=== PATIENT | female | born 1975 | race Caucasian/White ===

== ENCOUNTER 2016-06-21 10:44 | Emergency (ER) | payer OTHER ==
[2016-06-21 12:53] LABS: HEMOGLOBIN 13.5 gm/dl (12.3-15.3); RED BLOOD COUNT 4.61 M/UL (4.00-5.10); WHITE BLOOD COUNT 8.5 K/UL (4.5-11.0)
[2016-06-21 13:18] LABS: BUN/CREATININE RATIO 18 (0-10)
[2016-07-11] MEDS ORDERED: LEXAPRO20 MG PO (11:23)
[2016-07-11] MEDS ORDERED: FLEXERIL 10 MG10 MG PO (11:24)
[2016-07-11] MEDS ORDERED: PROTONIX20 MG PO (11:24)
[2016-07-11] MEDS ORDERED: PROVENTIL HFA 61 INH INH ×2 (11:24→11:25)
[2016-07-11] MEDS ORDERED: PRINIVIL5 MG PO (11:25)
[2016-07-11] MEDS ORDERED: NEURONTIN 400400 MG PO (11:26)
[2016-07-11] MEDS ORDERED: IMITREX25 MG PO (11:28)
[2016-07-11] MEDS ORDERED: COLACE 100MG C100 MG PO (14:01)
[2016-07-11] MEDS ORDERED: NORCO 7.5-3251 EACH PO (14:02)
== END 2016-06-21 14:10 | disposition home or self-care (01) ==
LOC: ER1 10:44
PROVIDERS: Physician Assistant Medical
DX: B34.9 Viral infection, unspecified (principal); I10 Essential (primary) hypertension; J45.909 Unspecified asthma, uncomplicated; F17.210 Nicotine dependence, cigarettes, uncomplicated; Z88.0 Allergy status to penicillin
CPT/HCPCS: 71020; 80053; 81001; 83690; 85025; 94640; 94664; 99283

== ENCOUNTER 2016-06-29 14:29 | Emergency (ER) | payer OTHER ==
[2016-06-29 16:22] LABS: HEMOGLOBIN 16.2 gm/dl (12.3-15.3); RED BLOOD COUNT 5.5 M/UL (4.00-5.10); WHITE BLOOD COUNT 9.6 K/UL (4.5-11.0)
[2016-06-29 16:39] LABS: BUN/CREATININE RATIO 27 (0-10)
[2016-07-11] MEDS ORDERED: LEXAPRO20 MG PO (11:23)
[2016-07-11] MEDS ORDERED: FLEXERIL 10 MG10 MG PO (11:24)
[2016-07-11] MEDS ORDERED: PROVENTIL HFA 61 INH INH ×2 (11:24→11:25)
[2016-07-11] MEDS ORDERED: PROTONIX20 MG PO (11:24)
[2016-07-11] MEDS ORDERED: PRINIVIL5 MG PO (11:25)
[2016-07-11] MEDS ORDERED: NEURONTIN 400400 MG PO (11:26)
[2016-07-11] MEDS ORDERED: IMITREX25 MG PO (11:28)
[2016-07-11] MEDS ORDERED: COLACE 100MG C100 MG PO (14:01)
[2016-07-11] MEDS ORDERED: NORCO 7.5-3251 EACH PO (14:02)
== END 2016-06-29 18:00 | disposition home or self-care (01) ==
LOC: ER1 14:29
PROVIDERS: Physician Assistant Medical
DX: K80.70 Calculus of gallbladder and bile duct without cholecystitis without obstruction (principal); B18.1 Chronic viral hepatitis B without delta-agent; I10 Essential (primary) hypertension; J45.909 Unspecified asthma, uncomplicated; F17.210 Nicotine dependence, cigarettes, uncomplicated; Z88.0 Allergy status to penicillin
CPT/HCPCS: 36415; 76705; 80053; 81001; 82150; 83690; 85025; 96374; 99284; J2550; J7030

== ENCOUNTER 2016-07-04 14:15 | Emergency (ER) | payer OTHER ==
[2016-07-11] MEDS ORDERED: LEXAPRO20 MG PO (11:23)
[2016-07-11] MEDS ORDERED: FLEXERIL 10 MG10 MG PO (11:24)
[2016-07-11] MEDS ORDERED: PROTONIX20 MG PO (11:24)
[2016-07-11] MEDS ORDERED: PROVENTIL HFA 61 INH INH ×2 (11:24→11:25)
[2016-07-11] MEDS ORDERED: PRINIVIL5 MG PO (11:25)
[2016-07-11] MEDS ORDERED: NEURONTIN 400400 MG PO (11:26)
[2016-07-11] MEDS ORDERED: IMITREX25 MG PO (11:28)
[2016-07-11] MEDS ORDERED: COLACE 100MG C100 MG PO (14:01)
[2016-07-11] MEDS ORDERED: NORCO 7.5-3251 EACH PO (14:02)
== END 2016-07-04 19:12 | disposition left against medical advice (07) ==
LOC: ER1 14:15
DX: Z53.21 Procedure and treatment not carried out due to patient leaving prior to being seen by health care provider (principal)

== ENCOUNTER → 2016-07-11 | Day surgery (SDC) | payer OTHER ==
[~2016-07-11] VITALS: Ht 167.6 cm; Wt 56.7 kg
[~2016-07-11] MED LIST: COLACE 100MG C100 MG PO; FLEXERIL 10 MG10 MG PO; IMITREX25 MG PO; LEXAPRO20 MG PO; NEURONTIN 400400 MG PO; NORCO 7.5-3251 EACH PO; PRINIVIL5 MG PO; PROTONIX20 MG PO; PROVENTIL HFA 61 INH INH
[2016-07-11 11:10] LABS: HEMOGLOBIN 14.7 gm/dl (12.3-15.3); RED BLOOD COUNT 5.01 M/UL (4.00-5.10); WHITE BLOOD COUNT 6.5 K/UL (4.5-11.0)
== END | disposition home or self-care (01) ==
LOC: OR 10:16
PROVIDERS: Surgery
PROC: BF13YZZ Fluoroscopy of Gallbladder and Bile Ducts using Other Contrast (ICD-10-PCS; 2016-07-11)
PROC: 0FT44ZZ Resection of Gallbladder, Percutaneous Endoscopic Approach (ICD-10-PCS; principal; 2016-07-11 13:15)
DX: K80.10 Calculus of gallbladder with chronic cholecystitis without obstruction (principal); F17.210 Nicotine dependence, cigarettes, uncomplicated; R03.0 Elevated blood-pressure reading, without diagnosis of hypertension; K21.9 Gastro-esophageal reflux disease without esophagitis; E83.52 Hypercalcemia; E78.5 Hyperlipidemia, unspecified; E66.9 Obesity, unspecified; M19.90 Unspecified osteoarthritis, unspecified site; G89.29 Other chronic pain; G43.909 Migraine, unspecified, not intractable, without status migrainosus; Z88.0 Allergy status to penicillin; Z79.51 Long term (current) use of inhaled steroids; Z79.899 Other long term (current) drug therapy; Z98.51 Tubal ligation status; J45.909 Unspecified asthma, uncomplicated; Z86.19 Personal history of other infectious and parasitic diseases
CPT/HCPCS: 36415; 47531; 85027; 86850; 86900; 86901; J1100; J2250; J2405; J2710; J3010; J7030; J7120; Q9962

== ENCOUNTER → 2016-10-10 | Outpatient (CLI) | payer OTHER | LOC: RAD 13:30 | DX: M54.2 Cervicalgia (principal); M54.5 Low back pain | CPT/HCPCS: 72050; 72072; 72110 ==

== ENCOUNTER 2020-07-29 15:25 | Emergency (ER) | payer OTHER ==
[~2020-07-29 15:25] MED LIST changes: +ELIMITE 5% CREA60 GM TOP; +IBUPROFEN800 MG PO; +LEVAQUIN500 MG PO; +OMNICEF 300 MG300 MG PO; +PREDNISONE 50 M50 MG PO; +VENTOLIN HFA 66.7 GM INH
[2020-07-29 17:24] LABS: HEMOGLOBIN 8.2 gm/dl (12.3-15.3); RED BLOOD COUNT 3.92 M/UL (4.00-5.10); WHITE BLOOD COUNT 13.9 K/UL (4.5-11.0)
[2020-07-29 17:46] LABS: BUN/CREATININE RATIO 24 (0-10)
[2020-07-30 10:23] LABS: HEMOGLOBIN 7.4 gm/dl (12.3-15.3); RED BLOOD COUNT 3.61 M/UL (4.00-5.10); WHITE BLOOD COUNT 13.6 K/UL (4.5-11.0)
[2020-07-31 11:11] LABS: HBSAG SCREEN Negative (Negative); HEP A AB, IGM Negative (Negative); HEP B CORE AB, IGM Indeterminate (Negative); HEP C VIRUS AB >11.0 (0.0-0.9)
[2020-07-31 13:11] LABS: ANTI-DSDNA ANTIBODIES 1 IU/mL (0-9)
[2020-07-31 16:12] LABS: FINAL INTERPRETATION Negative (.); HIV 1 AB Negative (Negative); HIV 2 AB Negative (Negative)
== END 2020-07-30 10:36 | disposition left against medical advice (07) ==
LOC: ER1 15:25
PROVIDERS: Family Medicine; Student in an Organized Health Care Education/Training Program
DX: A41.9 Sepsis, unspecified organism (principal); I77.6 Arteritis, unspecified; F17.210 Nicotine dependence, cigarettes, uncomplicated; Z90.49 Acquired absence of other specified parts of digestive tract; Z20.822 Contact with and (suspected) exposure to COVID-19; Z88.0 Allergy status to penicillin; Z88.8 Allergy status to other drugs, medicaments and biological substances
CPT/HCPCS: 0240U; 36600; 71045; 80053; 80074; 82550; 82553; 82803; 83605; 83735; 83880; 84100; 84484; 84702; 85025; 85652; 86038; 86140; 86225; 86701; 86702; 87040; 93005; 96374; 96375; 96376; 99283; J0692; J2270; J2930; J3370

== ENCOUNTER 2020-08-05 00:31 | Inpatient (IN) | payer OTHER ==
[~2020-08-05] VITALS: Ht 165.1 cm; Wt 59.0 kg
[2020-08-05 01:04] LABS: RED BLOOD COUNT 3.04 M/UL (4.00-5.10)
[2020-08-05 01:30] LABS: BUN/CREATININE RATIO 18 (0-10)
[2020-08-05 01:37] LABS: HEMOGLOBIN 6.3 gm/dl (12.3-15.3); WHITE BLOOD COUNT 34.4 K/UL (4.5-11.0)
[2020-08-05 07:48] LABS: HEMOGLOBIN 9.3 gm/dl (12.3-15.3); RED BLOOD COUNT 4.11 M/UL (4.00-5.10); WHITE BLOOD COUNT 33.2 K/UL (4.5-11.0)
[2020-08-05] MEDS ORDERED: BUPRENORPHIN-N1 EACH SL (08:02)
[2020-08-05] MEDS ORDERED: INDERAL TAB 1010 MG PO (09:31)
[2020-08-05] MEDS ORDERED: HYDROXYZINE HCL10 MG PO (09:32)
[2020-08-05 13:01] LABS: WHITE BLOOD COUNT 33.3 K/UL (4.5-11.0)
[2020-08-05 18:03] LABS: HEMOGLOBIN 8.8 gm/dl (12.3-15.3); RED BLOOD COUNT 3.89 M/UL (4.00-5.10); WHITE BLOOD COUNT 25.5 K/UL (4.5-11.0)
[2020-08-06 02:06] LABS: RED BLOOD COUNT 3.81 M/UL (4.00-5.10)
[2020-08-06 02:31] LABS: ACINETOBACTER BAUMANNII Not Detected (Negative); CANDIDA ALBICANS Not Detected (Negative); CANDIDA KRUSEI Not Detected (Negative); CANDIDA TROPICALIS Not Detected (Negative); ENTEROCOCCUS Not Detected (Negative); ESCHERICHIA COLI Not Detected (Negative); HAEMOPHILUS INFLUENZAE Not Detected (Negative); KLEBSIELLA OXYTOCA Not Detected (Negative); KLEBSIELLA PNEUMONIAE Not Detected (Negative); KPC-CARBAPENEM-RESISTANCE GENE Not Detected (Negative); PROTEUS Not Detected (Negative); PSEUDOMONAS AERUGINOSA Not Detected (Negative); SERRATIA MARCESANS Not Detected (Negative); STAPHYLOCOCCUS Not Detected (Negative); STAPHYLOCOCCUS AUREUS Not Detected (Negative); STREP AGALACTIAE (GROUP B) Not Detected (Negative); STREP PYOGENES (GROUP A) Not Detected (Negative); STREPTOCOCCUS Not Detected (Negative); mecA (METHICILLIN RESIST GENE Not Detected (Negative); vanA/B (VANCOMYCIN RESIST GENE Not Detected (Negative)
[2020-08-06 02:39] LABS: HEMOGLOBIN 8.5 gm/dl (12.3-15.3)
[2020-08-06 07:56] LABS: HEMOGLOBIN 8.1 gm/dl (12.3-15.3); RED BLOOD COUNT 3.59 M/UL (4.00-5.10)
[2020-08-06 08:14] LABS: HBSAG SCREEN Negative (Negative); HEP A AB, IGM Negative (Negative); HEP B CORE AB, IGM Positive (Negative); HEP C VIRUS AB >11.0 (0.0-0.9)
[2020-08-06 08:57] LABS: WHITE BLOOD COUNT 38.2 K/UL (4.5-11.0)
[2020-08-07 01:04] LABS: HEMOGLOBIN 8.6 gm/dl (12.3-15.3); RED BLOOD COUNT 3.79 M/UL (4.00-5.10)
[2020-08-07 01:08] LABS: WHITE BLOOD COUNT 50.3 K/UL (4.5-11.0)
[2020-08-07 06:42] LABS: HEMOGLOBIN 7.9 gm/dl (12.3-15.3); RED BLOOD COUNT 3.54 M/UL (4.00-5.10)
[2020-08-07 06:50] LABS: WHITE BLOOD COUNT 43.4 K/UL (4.5-11.0)
[2020-08-09 20:11] LABS: ANTIMYELOPEROXIDASE (MPO) ABS <9.0 U/mL (0.0-9.0); ANTIPROTEINASE 3 (PR-3) ABS 52.7 U/mL (0.0-3.5); ATYPICAL PANCA <1:20 titer (Neg:<1:20); PERINUCLEAR (P-ANCA) <1:20 titer (Neg:<1:20)
== END 2020-08-08 02:40 | disposition expired | DRG 871 ==
LOC: ER1 00:31 → CDU 05:26 → CCU 05:26
PROVIDERS: Internal Medicine; Student in an Organized Health Care Education/Training Program; ADMIT Internal Medicine
PROC: 3E033XZ Introduction of Vasopressor into Peripheral Vein, Percutaneous Approach (ICD-10-PCS; principal; 2020-08-05)
PROC: 5A12012 Performance of Cardiac Output, Single, Manual (ICD-10-PCS; 2020-08-05)
PROC: 30233N1 Transfusion of Nonautologous Red Blood Cells into Peripheral Vein, Percutaneous Approach (ICD-10-PCS; 2020-08-05)
PROC: B24BZZ4 Ultrasonography of Heart with Aorta, Transesophageal (ICD-10-PCS; 2020-08-05)
PROC: 5A1945Z Respiratory Ventilation, 24-96 Consecutive Hours (ICD-10-PCS; 2020-08-05)
PROC: 02HV33Z Insertion of Infusion Device into Superior Vena Cava, Percutaneous Approach (ICD-10-PCS; 2020-08-05)
PROC: 0BH17EZ Insertion of Endotracheal Airway into Trachea, Via Natural or Artificial Opening (ICD-10-PCS; 2020-08-05)
PROC: 03HY32Z Insertion of Monitoring Device into Upper Artery, Percutaneous Approach (ICD-10-PCS; 2020-08-05)
PROC: B54NZZA Ultrasonography of Left Upper Extremity Veins, Guidance (ICD-10-PCS; 2020-08-05)
DX: B37.7 Candidal sepsis (principal); J18.9 Pneumonia, unspecified organism; N17.0 Acute kidney failure with tubular necrosis; J96.01 Acute respiratory failure with hypoxia; R65.21 Severe sepsis with septic shock; R57.0 Cardiogenic shock; Z20.822 Contact with and (suspected) exposure to COVID-19; Z66 Do not resuscitate; I46.9 Cardiac arrest, cause unspecified; G93.1 Anoxic brain damage, not elsewhere classified; G93.40 Encephalopathy, unspecified; L97.809 Non-pressure chronic ulcer of other part of unspecified lower leg with unspecified severity; E87.2 Acidosis; F11.20 Opioid dependence, uncomplicated; I42.8 Other cardiomyopathies; I96 Gangrene, not elsewhere classified; D50.9 Iron deficiency anemia, unspecified; F19.10 Other psychoactive substance abuse, uncomplicated; I77.6 Arteritis, unspecified; I08.1 Rheumatic disorders of both mitral and tricuspid valves; I27.20 Pulmonary hypertension, unspecified; B19.20 Unspecified viral hepatitis C without hepatic coma; F17.210 Nicotine dependence, cigarettes, uncomplicated; E83.39 Other disorders of phosphorus metabolism; F31.9 Bipolar disorder, unspecified; F15.10 Other stimulant abuse, uncomplicated; Z87.442 Personal history of urinary calculi; Z88.0 Allergy status to penicillin
CPT/HCPCS: ECHO; 0240U; 31500; 36415; 36430; 36556; 36600; 36620; 70450; 71045; 80048; 80053; 80074; 80202; 80307; 81001; 82550; 82553; 82595; 82803; 82962; 83520; 83605; 83690; 83735; 83874; 83880; 84100; 84484; 84702; 85025; 85384; 85610; 85730; 86140; 86256; 86850; 86900; 86901; 86920; 87040; 87077; 87086; 87150; 87186; 93005; 93306; 94002; 94003; 94760; 95824; 96365; 96366; 96375; 99291; 99292; C1751; C9113; G0480; J0171; J0360; J0692; J1650; J2060; J2185; J2248; J2270; J2704; J2930; J3370; J3475; J3480; J7030; J7060; J7070; P9016; Q9967